=== PATIENT | male | born 1985 | race Caucasian/White ===

== ENCOUNTER 2022-12-01 23:23 | Emergency (ER) | payer BC, SELFPAY ==
[2022-12-01 23:35] VITALS: BP 128/96; PULSE 119; RESP 18; TEMP 36.6; O2SAT 96; BMI 41.6
[2022-12-01 23:46] LABS: Basophils # 0.1 10^3/uL (0.0-0.1); Basophils % 0.7 %; Eosinophils # 0.4 10^3/uL (0.0-0.8); Eosinophils % 2.4 %; Hematocrit 50.1 % (42.0-52.0); Hemoglobin 16.9 g/dL (11.7-16.6); Lymphocytes # 2.6 10^3/uL (0.8-4.8); Lymphocytes % 16.1 %; Mean Corpuscular HGB Conc 33.7 g/dL (30.0-36.0); Mean Corpuscular Hemoglobin 30.3 pg (28.0-34.0); Mean Corpuscular Volume 89.8 fl (80-94); Mean Platelet Volume 9.8 fL (7.4-10.4); Monocytes # 0.8 10^3/uL (0.2-0.9); Neutrophils # 12.33 10^3/uL (1.8-7.7); Neutrophils % 75.4 %; Nucleated Red Blood Cells % 0 %; Platelet Count 337 10^3/cmm (130-400); Red Blood Count 5.58 10^6/uL (4.1-5.3); Red Cell Distribution Width 11.9 % (12.1-15.1); White Blood Count 16.4 10^3/uL (4.0-10.0)
--- NOTE | 2022-12-01 23:47 | CTR_ITS ---
PROCEDURE INFORMATION: Exam: CT Abdomen And Pelvis With Contrast Exam date and time: 12/01/2022 11:58 PM Age: 37 years old Clinical indication: Nausea and vomiting; Abdominal pain; Localized; Left upper quadrant (luq); Prior surgery; Surgery date: 6+ months; Surgery type: Gb; Patient HX: Luq pain with n/v/d. ; Additional info: Abd pain TECHNIQUE: Imaging protocol: Computed tomography of the abdomen and pelvis with contrast. Radiation optimization: All CT scans at this facility use at least one of these dose optimization techniques: automated exposure control; mA and/or kV adjustment per patient size (includes targeted exams where dose is matched to clinical indication); or iterative reconstruction. Contrast material: OMNI 350; Contrast volume: 100 ml; Contrast route: INTRAVENOUS (IV); REPORTING DATA: Count of CT and Cardiac NM exams in prior 12 months: This patient has received 0 known CTs and 0 known cardiac nuclear medicine studies in the 12 months prior to the current study. COMPARISON: No relevant prior studies available. RADIATION DOSE METRICS: Total DLP (mGy-cm): 1281.23 FINDINGS: Liver: Normal. No mass. Gallbladder and bile ducts: Normal. No calcified stones. No ductal dilation. Pancreas: Normal. No ductal dilation. Spleen: Normal. No splenomegaly. Adrenal glands: Normal. No mass. Kidneys and ureters: Normal. No hydronephrosis. Stomach and bowel: Multiple dilated loops of jejunum and proximal ileum up to 4.5 cm in diameter with no transition point most consistent with enteritis. Appendix: No evidence of appendicitis. Intraperitoneal space: Unremarkable. No free air. No significant fluid collection. Vasculature: Unremarkable. No abdominal aortic aneurysm. Lymph nodes: Unremarkable. No enlarged lymph nodes. Urinary bladder: Unremarkable as visualized. Reproductive: Unremarkable as visualized. Bones/joints: Unremarkable. No acute fracture. Soft tissues: Unremarkable. CT/CT abdomen pelvis w con* [id number] IMPRESSION: Multiple dilated loops of jejunum and proximal ileum up to 4.5 cm in diameter with no transition point most consistent with enteritis.
--- NOTE | 2022-12-01 23:48 | ED_ITS ---
HPI - Nausea/Vomiting/Diarrhea General: Chief complaint: Nausea/Vomiting/Diarrhea Stated complaint: abd pain Time Seen by Provider: 12/01/22 23:32 Source: patient Mode of arrival: ambulatory Limitations: no limitations History of Present Illness: 37-year-old male who is currently on a [place] he states that he increased his dose yesterday states today has been having some epigastric pain he rates a 5 o ut of 10 he has had nausea along with diarrhea. He denies any fevers denies any worsening improving factors. Associated nausea: Yes Associated symtoms: Reports nausea; Denies chest pain, dysuria or headache(s) Review of Systems Const: Denies: fever(s), chills or body aches ENMT: Denies: throat pain or dental pain Card: Denies: chest pain Resp: Denies: dyspnea GI: Reports: abdominal pain, nausea and diarrhea; Denies: vomiting : Denies: dysuria Musc: Denies: neck pain or back pain Skin/Breast: Denies: rash Neuro: Denies: headache(s) Physical Exam Const: COMMON NORMALS: no acute distress, patient oriented x3 and healthy appearing HENMT: COMMON NORMALS: normocephalic and atraumatic HEAD & SCALP: normocephalic and atraumatic Eye: COMMON NORMALS: conjunctivae normal CONJUNCTIVA: Yes conjunctivae normal Neck/C-Spine: COMMON NORMALS: full ROM and supple Chest: COMMONS NORMALS: normal inspection of the chest Resp: COMMON NORMALS: normal respiratory effort, No retractions, No use of accessory muscles and clear to auscultation bilaterally AUSCULTATION: clear to auscultation bilaterally Cardio: COMMON NORMALS: regular rate, regular rhythm and No murmurs present (Cardio) RATE: regular rate RHYTHM: regular rhythm GI: COMMON NORMALS: Normal to inspection, nondistended, normoactive bowel sounds present, Soft to palpation and no masses PALPATION: Yes Soft to palpation OTHER: epigastric tenderness Extremity: COMMON NORMALS: normal to inspection and full ROM Neuro: COMMON NORMALS: patient oriented x3, moves all extremities and no focal motor deficits Psych: COMMON NORMALS: mental status grossly normal, Normal thought process present and cooperative THOUGHT PROCESS: Normal thought process present Skin: COMMON NORMALS: no rashes or lesions noted and no wounds GENERAL SKIN EXAM: no rashes or lesions noted Course Vital Signs: Vital signs: Vital Signs Temperature 98 F 12/01/22 23:35 Pulse Rate 116 H 12/02/22 00:07 Respiratory Rate 16 12/02/22 00:07 Blood Pressure 128/96 12/01/22 23:35 Pulse Oximetry 93 12/02/22 00:07 MDM - Nausea/Vomiting/Diarrhea Medical Decision Making Patient presents with vomiting along with epigastric abdominal pain CT showed enteritis he is otherwise well-appearing here we will have him stop his Prilosec start Protonix we will prescribe him Zofran he is to follow-up with PCP and return if worsening he understands agrees to plan. Medical Records I reviewed the patient's medical records. Lab Data I reviewed the patient's lab results. 12/01/22 23:41 12/01/22 23:41 Radiology Impressions Abdomen/Pelvis CT 12/01/22 23:47 IMPRESSION: Multiple dilated loops of jejunum and proximal ileum up to 4.5 cm in diameter with no transition point most consistent with enteritis. Laboratory Results WBC 16.4 10^3/uL (4.0-10.0) H 12/01/22 23:41 RBC 5.58 10^6/uL (4.1-5.3) H 12/01/22 23:41 Hgb 16.9 g/dL (11.7-16.6) H 12/01/22 23:41 Hct 50.1 % (42.0-52.0) 12/01/22 23:41 MCV 89.8 fl (80-94) 12/01/22 23:41 MCH 30.3 pg (28.0-34.0) 12/01/22 23:41 MCHC 33.7 g/dL (30.0-36.0) 12/01/22 23:41 RDW 11.9 % (12.1-15.1) L 12/01/22 23:41 Plt Count 337 10^3/cmm (130-400) 12/01/22 23:41 MPV 9.8 fL (7.4-10.4) 12/01/22 23:41 Neut % (Auto) 75.4 % 12/01/22 23:41 Lymph % (Auto) 16.1 % 12/01/22 23:41 [place] % (Auto) 5.0 % 12/01/22 23:41 Eos % (Auto) 2.4 % 12/01/22 23:41 Baso % (Auto) 0.7 % 12/01/22 23:41 Neut # (Auto) 12.33 10^3/uL (1.8-7.7) H 12/01/22 23:41 Lymph # (Auto) 2.6 10^3/uL (0.8-4.8) 12/01/22 23:41 [place] # (Auto) 0.8 10^3/uL (0.2-0.9) 12/01/22 23:41 Eos # (Auto) 0.4 10^3/uL (0.0-0.8) 12/01/22 23:41 Baso # (Auto) 0.1 10^3/uL (0.0-0.1) 12/01/22 23:41 Nucleated RBC % (auto) 0 % 12/01/22 23:41 Nucleated RBCs # 0.0 /100WBC 12/01/22 23:41 Sodium 135 mmol/L (136-145) L 12/01/22 23:41 Potassium 4.8 mmol/L (3.5-5.1) 12/01/22 23:41 Chloride 105 mmol/L (98-107) 12/01/22 23:41 Carbon Dioxide 16 mmol/L (22-29) L 12/01/22 23:41 Anion Gap 18.8 (5-19) 12/01/22 23:41 BUN 17 mg/dL (6-20) 12/01/22 23:41 Creatinine 1.0 mg/dL (0.7-1.2) 12/01/22 23:41 GFR Calculation TNP 12/01/22 23:41 Glucose 228 mg/dL (65-115) H 12/01/22 23:41 Calculated Osmolality 289 mOsm/kg (285-295) 12/01/22 23:41 Calcium 9.1 mg/dL (8.5-10.5) 12/01/22 23:41 Total Bilirubin 0.4 mg/dL (0.15-1.2) 12/01/22 23:41 AST 13 U/L (0-40) 12/01/22 23:41 ALT 20 U/L (0-41) 12/01/22 23:41 Alkaline Phosphatase 63 U/L (40-130) 12/01/22 23:41 Total Protein 7.6 g/dL (6.6-8.7) 12/01/22 23:41 Albumin 4.6 g/dL (3.5-5.2) 12/01/22 23:41 Globulin 3.0 g/dL (1.3-4.6) 12/01/22 23:41 Lipase 16 U/L (13-60) 12/01/22 23:41 Discharge Plan Discharge Patient Disposition: Home Clinical Impression: Gastroenteritis Condition: Stable Prescriptions: New ondansetron 4 mg tablet,disintegrating 4 mg PO Q6H PRN (Reason: nausea and vomiting) Qty: 14 0RF Protonix 40 mg tablet,delayed release (DR/EC) 40 mg PO BID Qty: 60 0RF Discharge Orders: Discharge ED (Routine); Ordered 12/02/22 Ordered By: Jose R Conway Referrals: Leonor Cheung MD [Referring] - Discharge Diet: Advance as tolerated Discharge Activity: Resume usual activity Patient Instructions: Gastroenteritis (ED) Coding Level of Care Code ED [employer] for Khadra Rondon
[2022-12-01] MEDS: ondansetron 2 mg/ML SDV 2 mL 4 MG IVP (23:53)
[2022-12-01] MEDS: sodium chloride 0.9% 1,000 ML 999 ML IV (23:53)
[2022-12-01] MEDS: iohexol 350 mg/mL 500 mL Btl (per mL) IV (23:59)
[2022-12-02 00:01] LABS: Alanine Aminotransferase 20 U/L (0-41); Albumin Level 4.6 g/dL (3.5-5.2); Alkaline Phosphatase 63 U/L (40-130); Anion Gap 18.8 (5-19); Aspartate Amino Transferase 13 U/L (0-40); Blood Urea Nitrogen 17 mg/dL (6-20); Calcium 9.1 mg/dL (8.5-10.5); Chloride 105 mmol/L (98-107); Lipase 16 U/L (13-60); Osmolality Calculated 289 mOsm/kg (285-295); Potassium 4.8 mmol/L (3.5-5.1); Total Bilirubin 0.4 mg/dL (0.15-1.2); Total Protein 7.6 g/dL (6.6-8.7)
[2022-12-02 00:06] LABS: Carbon Dioxide 16 mmol/L (22-29); Glucose 228 mg/dL (65-115); Sodium 135 mmol/L (136-145)
[2022-12-02 00:07] VITALS: PULSE 116; RESP 16; O2SAT 93
--- NOTE | 2022-12-02 00:14 | PC.NURSE ---
RN into room to attempt to collect stool specimen. Pt informs RN that the diarrhea has lessened this evening but was more prominent this morning. RN reminded pt to hit call light whenever pt is able to provide stool sample. Pt verbalized understanding.
[2022-12-02] MEDS: ondansetron 2 mg/ML SDV 2 mL 4 MG IVP (01:09)
[2022-12-02] MEDS: morphine 4 mg/mL SDV 1 mL IVP (01:10)
[2022-12-02] MEDS: HYDROcodone-acetaminophen 7.5-325 mg Tablet 1 TAB PO (01:13)
[2022-12-02 01:42] VITALS: BP 128/96; PULSE 116; RESP 16; TEMP 36.6; O2SAT 93
--- NOTE | 2022-12-05 09:44 | DCPLANNER ---
hog confinement system manager called patient due to no primary care physician - no answer at this time.
== END 2022-12-02 01:43 | disposition home or self-care (01) ==
PROVIDERS: Emergency Provider Emergency Medicine
DX: K52.9 Noninfective gastroenteritis and colitis, unspecified (principal)
CPT/HCPCS: 36415; 74177; 80053; 83690; 85025; 87493; 87506; 96361; 96374; 96375; 96376; 99285; J2270; J2405; J7030; Q9967